=== PATIENT | male | born 1995 | race African-American/Black ===

== ENCOUNTER 2018-03-02 14:40 | Emergency (ER) | payer OTHER | END 2018-03-02 15:19 | disposition home or self-care (01) | LOC: M ED 14:40 | DX: L50.9 Urticaria, unspecified (principal) | CPT/HCPCS: 99282 ==

== ENCOUNTER 2018-03-23 23:55 | Emergency (ER) | payer OTHER ==
[~2018-03-23] VITALS: Ht 172.7 cm; Wt 68.2 kg
[2018-03-23 23:55] VITALS: BP 119/59
[~2018-03-23 23:55] MED LIST: TRIA25CR TOP
[2018-03-24] MEDS ORDERED: DERMABOND TOPICAL SKIN ADHESIVE TOP ONE (01:00)
== END 2018-03-24 01:09 | disposition home or self-care (01) ==
LOC: M ED 23:55
DX: S61.412A Laceration without foreign body of left hand, initial encounter (principal); W26.0XXA Contact with knife, initial encounter; Y92.099 Unspecified place in other non-institutional residence as the place of occurrence of the external cause; Y93.E5 Activity, floor mopping and cleaning; Y99.9 Unspecified external cause status